=== PATIENT | female | born 2000 | race African-American/Black ===

== ENCOUNTER 2023-05-23 03:32 | Emergency (ER) | payer SELFPAY ==
[2023-05-23 03:39] VITALS: BP 119/94; PULSE 82; TEMP 36.6; O2SAT 100; BMI 30.1
--- NOTE | 2023-05-23 04:16 | ED.EXTPRO1 ---
HPI - Extremity Problem General Chief complaint: Extremity Problem, Nontraumatic Stated complaint: FINGERS GOING NUMB Time Seen by Provider: 05/23/23 03:38 Source: patient and family Mode of arrival: walk-in History of Present Illness HPI Narrative: This 23-year-old female who is right-hand dominant presents for evaluation of pain in her right hand and intermittent numbness in her index long and ring finger for the past 2 days. 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 She denies any injury from work. She states for the past several nights she's been waking up in her right hand was numb and she feels the need to shake it out to restore circulation to it. She states it feels like she was sleeping on it with pins and needles. The patient's mother states that she has neuropathy is concerned that the patient made to be developing neuropathy. The patient is not diabetic and has no other indications that she is developing neuropathy. She has no weakness or numbness. No medications have been taken. She denies possibility of . Related Data Allergies Allergy/AdvReac Type Severity Reaction Status Date / Time Penicillins AdvReac Hives Verified 05/23/23 03:42 Review of Systems ROS Status of ROS 10 or more systems reviewed and unremarkable except as noted in history and below Exam Narrative Exam Narrative: Nurses note and vital signs reviewed and patient is not hypoxic. General: Overweight -[place] female resting comfortable in the stretcher, no respiratory distress Skin: Warm, dry, no pallor noted. There is no rash noted. Head: Normocephalic, atraumatic Eye: Normal conjunctiva, no drainage, EOMI. PERRL Cardiovascular: Regular Rate and Rhythm Respiratory: Patient is in no distress, no accessory muscle use, lungs are clear to auscultation, no wheezing, rales or rhonchi Musculoskeletal: There is no notable redness or swelling of the right hand wrist or forearm. Patient is able to make a tight fist. She is able to approximate thumb and all fingers. Negative Tinel and Phalen's test. Capillary refill in the fingers is less than 2 seconds. Radial pulse is brisk. Neurological: A&O x4, normal speech Psychiatric: Cooperative Constitutional Vital Signs, click to edit/add: Last Vital Signs Temp 97.9 F 05/23/23 03:39 Pulse 82 05/23/23 03:39 Resp 16 05/23/23 03:39 BP 119/94 H 05/23/23 03:39 Pulse Ox 100 05/23/23 03:39 O2 Del Method Room Air 05/23/23 03:39 Course Vital Signs Vital signs: Vital Signs Temperature 97.9 F 05/23/23 03:39 Pulse Rate 82 05/23/23 03:39 Respiratory Rate 16 05/23/23 03:39 Blood Pressure 119/94 H 05/23/23 03:39 Pulse Oximetry 100 05/23/23 03:39 Oxygen Delivery Method Room Air 05/23/23 03:39 Temperature 97.9 F 05/23/23 03:39 Pulse Rate 82 05/23/23 03:39 Respiratory Rate 16 05/23/23 03:39 Blood Pressure 119/94 H 05/23/23 03:39 Pulse Oximetry 100 05/23/23 03:39 Oxygen Delivery Method Room Air 05/23/23 03:39 MDM - Extremity (Nontraumatic) MDM Narrative Medical decision making narrative: This was a 4-year-old female who is right-hand dominant presents for evaluation of pain with intermittent numbness tingling and pins and needle sensation in her right hand over the course of the past 2 nights. 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 Her mother is concerned that she is developing neuropathy but the patient is not diabetic and has no other symptoms of neuropathy. 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 She also may have carpal tunnel but at this time it does not appear consistent with carpal tunnel syndrome with a negative Phalen's and Tinel's sign. She was educated with ibuprofen and placed in a wrist splint for comfort and compression. She will be discharged home with a prescription for ibuprofen. Discharge Plan Discharge Stand Alone Forms: Portal Instructions Chief Complaint: Extremity Problem, Nontraumatic Clinical Impression: Right wrist tendinitis Patient Disposition: Home, Self-Care Time of Disposition Decision: 04:14 Condition: Good Print Language: Azeri Instructions: Tendinitis (ED) Referrals: Physician,Non-Staff, MD [Primary Care Provider] - 1 week
[2023-05-23] MEDS: IBUPROFEN 600 MG TABLET PO (04:35)
== END 2023-05-23 04:51 | disposition home or self-care (01) ==
PROVIDERS: Emergency Provider Emergency Medicine
DX: M77.8 Other enthesopathies, not elsewhere classified (principal)
CPT/HCPCS: 99283